=== PATIENT | female | born 1980 | race Caucasian/White ===

== ENCOUNTER → 2017-11-21 | Outpatient (CLI) | payer OTHER ==
[~2017-11-21] MED LIST: CALC500C50; HMLI SC; INSUINJ SC; PRENTAB26 PO
--- NOTE | 2017-11-24 14:49 | MAMMOGRAPHY REPORT ---
BILATERAL DIGITAL SCREENING MAMMOGRAM TOMOSYNTHESIS WITH CAD: 11/21/2017 CLINICAL HISTORY: Routine screening. The patient reported to the technologist a "puffy area" on her left areola. TECHNIQUE: Breast tomosynthesis in addition to standard 2D mammography was performed. Current study was also evaluated with a Computer Aided Detection (CAD) system. COMPARISON: Comparison is made to exams dated: 11/13/2015 mammogram, 09/06/2014 mammogram, and 04/13/2013 mammogram - [facility]. BREAST COMPOSITION: There are scattered areas of fibroglandular density in both breasts. FINDINGS: There is a new oval circumscribed 6 mm mass within the right lower inner quadrant, best se en on the tomosynthesis images, for which targeted ultrasound and possible additional spot compressio n views are recommended for further evaluation. This may represent a cyst. The remainder of both breasts are stable compared to prior exams, without suspicious masses, calcific ations, or areas of architectural distortion noted. Benign intramammary lymph node in the right uppe r outer quadrant is stable compared to prior exams. IMPRESSION: ACR BI-RADS CATEGORY 0: INCOMPLETE EVALUATION: NEED ADDITIONAL IMAGING EVALUATION 1. Right breast mass, for which additional imaging evaluation is recommended. 2. The patient reported to the technologist a "puffy area" on her left areola. Recommend clinical f ollow-up. The patient will be called to schedule an appointment. Approximately 10% of breast cancers are not detected with mammography. A negative mammographic report should not delay biopsy if a clinically suggestive mass is present. Cristina Moody M.D. /:11/21/2017 15:58:49 Policy Advisor: Santiago BOUDREAUX(R)(M), [facility] letter sent: Addl Imaging 0 BI-RADS Code: ACR BI-RADS Category 0: Incomplete Evaluation: Need Additional Imaging Evaluation
== END | disposition home or self-care (01) ==
LOC: C.MAMM 11:45
PROVIDERS: ATTEND Family Medicine
DX: Z12.31 Encounter for screening mammogram for malignant neoplasm of breast (principal); N63.10 Unspecified lump in the right breast, unspecified quadrant

== ENCOUNTER → 2017-12-02 | Outpatient (CLI) | payer OTHER ==
--- NOTE | 2017-12-02 15:15 | MAMMOGRAPHY REPORT ---
ULTRASOUND OF RIGHT BREAST: 12/02/2017 CLINICAL HISTORY: 37-year-old woman called back from screening mammography for a new oval circumscrib ed 6 mm mass in the lower inner quadrant of the right breast. Family history of breast cancer = pebbles enopausal mother, maternal grandmother. The patient also reports a small indentation along the media l aspect of her right nipple, for which additional targeted ultrasound was performed today. COMPARISON: Comparison is made to exams dated: 11/21/2017 mammogram, 11/13/2015 mammogram, 09/06/2014 ma mmogram, and 04/13/2013 mammogram - [facility]. FINDINGS: Targeted ultrasound was performed in the lower inner quadrant of the right breast. In the 5:00 periareolar breast, there is a multilobulated predominantly anechoic cystic appearing mass, armand suring 11.5 x 4.4 x 4.3 mm, correlating with the mammographic mass. A portion of the mass is more hy poechoic and possibly solid in appearance. Although this could represent focal fibrocystic change, a mixed solid and cystic mass cannot be completely excluded and definitive characterization with an ul trasound-guided core needle biopsy is recommended. Additional targeted ultrasound was performed along the right nipple, with particular attention to the area of indentation along the medial aspect. No intraductal or intra-nipple mass is identified. No mass identified deeper within the retroareolar right breast to cause the patient's symptoms. Theref ore, continued clinical follow-up and monitoring is recommended. IMPRESSION: ACR BI-RADS CATEGORY 4: SUSPICIOUS - FOLLOW-UP RECOMMENDED 1. Ultrasound-guided core biopsy is recommended for a partially solid and partially cystic 11.5 mm m ass in the 5:00 periareolar right breast, correlating with the mammographic mass. 2. No suspicious targeted sonographic abnormality is identified involving the right nipple, in the a brown of indentation pointed out by the patient. Continued clinical follow-up is therefore recommended . These results and recommendations were discussed with the patient at the time of the exam. She tenta tively scheduled the biopsy prior to leaving the department. Lillie Ramsey M.D. ay/:12/02/2017 13:50:43 President [place]: Galina VELARDE)(Russell), [facility] letter sent: Abnormal 4/5 BI-RADS Code: ACR BI-RADS Category 4: Suspicious
== END | disposition home or self-care (01) ==
LOC: C.MAMM 13:05
PROVIDERS: ATTEND Family Medicine
DX: R92.8 Other abnormal and inconclusive findings on diagnostic imaging of breast (principal); N63.10 Unspecified lump in the right breast, unspecified quadrant

== ENCOUNTER → 2017-12-11 | Outpatient (CLI) | payer OTHER ==
--- NOTE | 2017-12-11 10:48 | Discharge Instructions ---
Discharge Instructions Procedure Procedure Date: Dec 11, 2017. Reason for visit: Right Mass. Discharge Discharge Date: Dec 11, 2017. Discharge Diagnosis: status post breast biopsy Instructions Activity Recommendations: Additional Limitations (see below) Return to School/Work: no limitations Recommended Home Diet: No Limitations Provider Instructions: ACTIVITY RECOMMENDATIONS: * No lifting, pushing, pulling or exercising the affected side for three days. RETURN TO SCHOOL/WORK: * You may return to work/school after the procedure, but do not perform any strenuous activities for 24 to 48 hours. MEDICATIONS: * Tylenol (two 325 mg) every four to six hours if needed for mild pain (if not allergic to Tylenol). DIET: * Resume previous diet. SPECIAL CARE INSTRUCTIONS: * Keep biopsy site dry for 24 hours. May shower after 24 hours, but do not soak (bathe) incision. * May remove Tegaderm (plastic patch) tomorrow AFTER showering. * Leave the steri-strips on for one week. Allow the steri-strips to fall off by themselves. If not off after one week, you may remove them. You may place a Bandaid crosswise over the strips, if desired. * Apply ice 10 minutes on and 10 minutes off as needed. * Wear a bra at bedtime to sleep more comfortably for 2-3 days. * Your referring physician should have the results after approximately 5 to 7 business days. * Call for unusual bleeding, fever, drainage, etc or if you have any questions call during normal business hours or after hours call Dr Moody, . FOLLOW UP VISIT: Follow-up with Referring Physician as scheduled. Allergies Coded Allergies: No Known Allergies (Unverified , 11/24/10) Claus Crook Recommendations: Call your doctor if: * Temperature above 101 degrees * Pain not relieved by pain medicine ordered * There is increased drainage or redness from any incision * You have any unanswered questions or concerns. Your Doctors Instructions noted above were prepared by provider Cristina Moody. Patient Signature Section: Patient Instructions Signature Page Migdalia Camacho Patient (or Guardian) Signature/Date: I have read and understand the instructions given to me by my caregivers. Caregiver/RN/Doctor Signature/Date: The above-named patient and/or guardian has received patient instructions on this date. + Original Patient Signature Page (only) stays with chart. Please make copy for patient.
--- NOTE | 2017-12-11 15:06 | MAMMOGRAPHY REPORT ---
ULTRASOUND GUIDED BIOPSY RIGHT BREAST: 12/11/2017 CLINICAL HISTORY: Right 5:00 breast mass. PATIENT CONSENT: The procedure, risks and benefits were discussed with the patient and informed writt en consent was obtained. A timeout was performed immediately prior to the procedure. PROCEDURE DESCRIPTION: With ultrasound guidance, aseptic technique, and lidocaine as the local anesth etic (1% lidocaine to anesthetize the skin and 1% lidocaine with epinephrine to anesthetize the deepe r tissues), the mass of concern in the right 5:00 breast was sampled 4 times with a 14-gauge Achieve biopsy needle. Immediately thereafter, with ultrasound guidance, aseptic technique, and lidocaine as the local anesthetic, a metallic localizer clip was placed at the biopsy site. Direct pressure was applied to the site immediately post procedure and hemostasis was achieved. Postprocedure unilateral mammograms were performed to confirm placement of the clip in the expected location of the breast ma ss. The patient tolerated the procedure without complication. She was given wound care instructions. The specimens were sent to pathology for analysis. COMPARISON: Comparison is made to exams dated: 12/02/2017 ultrasound, 11/21/2017 mammogram, 11/13/2015 m ammogram, 09/06/2014 mammogram, and 04/13/2013 mammogram - [facility]. IMPRESSION: ULTRASOUND GUIDED BIOPSY Ultrasound-guided core needle biopsy of the right 5:00 breast mass, with clip placement. The patient will receive pathology results from her referring provider. Cristina Moody M.D. ah/:12/11/2017 10:50:32 Food Service Substitute: Santiago VELARDE)(Russell), [facility]
--- NOTE | 2017-12-11 15:06 | MAMMOGRAPHY REPORT ---
UNILATERAL RIGHT DIGITAL DIAGNOSTIC MAMMOGRAM TOMOSYNTHESIS: 12/11/2017 CLINICAL HISTORY: Status post ultrasound-guided biopsy of the right 5:00 breast mass. TECHNIQUE: Breast tomosynthesis in addition to standard 2D mammography was performed. Postprocedura l right CC and ML tomosynthesis images were obtained. COMPARISON: Comparison is made to exams dated: 12/02/2017 ultrasound, 11/21/2017 mammogram, 09/06/2014 mammogram, 11/13/2015 mammogram, and 04/13/2013 mammogram - [facility]. BREAST COMPOSITION: There are scattered areas of fibroglandular density in the right breast. FINDINGS: A new ribbon-shaped biopsy marker clip is seen at the site of the biopsied mass in the righ t 5:00 breast. No significant postbiopsy hematoma is seen. IMPRESSION: POST PROCEDURE IMAGING FOR MARKER PLACEMENT New biopsy marker clip status post right breast biopsy. Pathology results are pending. Approximately 10% of breast cancers are not detected with mammography. A negative mammographic report should not delay biopsy if a clinically suggestive mass is present. Cristina Moody M.D. ah/:12/11/2017 11:33:20 Furniture Stainer: Santiago BOUDREAUX(R)(M), [facility] BI-RADS Code: Post Procedure Imaging For Marker Placement
== END | disposition home or self-care (01) ==
LOC: C.MAMM 10:00
PROVIDERS: ATTEND Family Medicine
DX: R92.8 Other abnormal and inconclusive findings on diagnostic imaging of breast (principal); N63.10 Unspecified lump in the right breast, unspecified quadrant; N60.81 Other benign mammary dysplasias of right breast